=== PATIENT | male | born 1935 | race Caucasian/White ===

== ENCOUNTER 2020-06-24 06:42 | Outpatient (CLI) | payer MEDICARE, SELFPAY ==
[2020-06-24 07:32] LABS: Alanine Aminotransferase 12 U/L (4-50); Albumin Level 3.8 g/dL (3.5-5.1); Alkaline Phosphatase 53 U/L (38-126); Anion Gap 8 mmol/L (8-16); Aspartate Amino Transferase 17 U/L (17-59); Bilirubin,Total 0.3 mg/dL (0.2-1.3); Blood Urea Nitrogen 21 mg/dL (9-20); Calcium 8.5 mg/dL (8.4-10.2); Carbon Dioxide 23 mmol/L (22-30); Chloride 109 mmol/L (98-107); Cholesterol 142 mg/dL (0-200); Estimated Glomerular Filt Rate > 60; Glucose 109 mg/dL (75-110); HDL Direct 41 mg/dL; Potassium 4.4 mmol/L (3.4-5.0); Sodium 140 mmol/L (137-145); Triglycerides 99 mg/dL (<150)
[2020-06-24 07:39] LABS: NT Pro B Type Natriuretic Pept 156 PG/ML (5-100)
[2020-06-24 07:44] LABS: LDL Cholesterol Direct 88 mg/dL
== END 2020-06-24 06:43 | disposition home or self-care (01) ==
PROVIDERS: PCP Emergency Medicine; Visit Provider Emergency Medicine
DX: R06.00 Dyspnea, unspecified (principal); R60.9 Edema, unspecified; E78.2 Mixed hyperlipidemia
CPT/HCPCS: 36415; 80053; 80061; 83880

== ENCOUNTER 2020-06-27 14:40 | Outpatient (CLI) | payer MEDICARE, SELFPAY ==
--- NOTE | 2020-06-27 14:46 | ECHO_ITS ---
Patient Info Name: Jose Dodson Age: 84 years : 1935 Gender: Male Ht: 67 in Wt: 195 lbs BSA: 2.07 m2 HR: 76 bpm BP: 138 / 70 mmHg Technical Quality: Good Exam Date: 06/27/2020 3:20 PM Exam Location: [facility] Patient Status: Outpatient Admit Date: 06/27/2020 Staff Ordering Physician: Bernard Olmos MD Welding Machine Assembler: Farheen Grigsby RDCS Attending Provider: Bernard Olmos MD Referring Physician: Nickolas WOLFE; Exam Type: CA echo doppler color flow Study Info Indications - essential htn Complete two-dimensional, color flow and Doppler transthoracic echocardiogram is performed. Summary 1. Left ventricular chamber dimension is normal. 2. Left ventricular systolic function is normal, estimated at 60-65%. 3. The left ventricular diastolic function is grade I diastolic dysfunction. 4. E/e' 14 is mildly elevated. 5. Global longitudinal strain is normal at -18.4%. 6. Left atrial chamber dimension is mildly enlarged. 7. There is mild aortic valve sclerosis. 8. The mitral valve has mildly thickened leaflets and moderately calcified annulus. 9. There is mild mitral valve regurgitation. 10. There is mild tricuspid valve regurgitation. 11. No pulmonary hypertension, estimated pulmonary arterial systolic pressure is 35 mmHg. Left Ventricle E/e' 14 is mildly elevated. Global longitudinal strain is normal at -18.4%. Left ventricular chamber dimension is normal. Left ventricular systolic function is normal, estimated at 60-65%. The left ventricular diastolic function is grade I diastolic dysfunction. Right Ventricle Right ventricular chamber dimension is normal. Right ventricular systolic function is normal. Left Atria Left atrial chamber dimension is mildly enlarged. Right Atria Right atrial chamber dimension is normal. Aortic Valve The aortic valve is trileaflet. There is mild aortic valve sclerosis. There is no aortic valve stenosis. There is no aortic valve regurgitation. Pulmonic Valve There is no pulmonic regurgitation. Mitral Valve The mitral valve has mildly thickened leaflets and moderately calcified annulus. There is no mitral valve stenosis. There is mild mitral valve regurgitation. Tricuspid Valve There is mild tricuspid valve regurgitation. No pulmonary hypertension, estimated pulmonary arterial systolic pressure is 35 mmHg. Pericardium/Pleural There is no pericardial effusion. Inferior Vena Cava Normal inferior vena cava with >50% collapse upon inspiration consistent with normal right atrial pressure, 5 mmHg. Aorta The aortic root size at the sinus of Valsalva is normal. Left Ventricular Outflow Tract Name Value Normal LVOT 2D LVOT Diameter 2.0 cm LVOT Doppler LVOT Peak Gradient 6 mmHg LVOT Mean Gradient 3 mmHg LVOT VTI 23 cm LVOT VTI/AV VTI Ratio 0.8 LVOT Stroke Volume 71 ml LVOT CO 15.4 l/min LVOT CI 7.4 l/mi
== END 2020-06-27 14:41 | disposition home or self-care (01) ==
PROVIDERS: PCP Emergency Medicine; Visit Provider Emergency Medicine
DX: I10 Essential (primary) hypertension (principal); I34.0 Nonrheumatic mitral (valve) insufficiency; I35.1 Nonrheumatic aortic (valve) insufficiency; I36.1 Nonrheumatic tricuspid (valve) insufficiency
CPT/HCPCS: 93306

== ENCOUNTER 2021-08-08 07:46 | Outpatient (CLI) | payer MEDICARE, SELFPAY ==
[2021-08-08 09:00] LABS: Alanine Aminotransferase 13 U/L (4-50); Albumin Level 4.3 g/dL (3.5-5.1); Alkaline Phosphatase 53 U/L (38-126); Anion Gap 8 mmol/L (8-16); Aspartate Amino Transferase 21 U/L (17-59); Bilirubin,Total 0.6 mg/dL (0.2-1.3); Blood Urea Nitrogen 19 mg/dL (9-20); Calcium 8.9 mg/dL (8.4-10.2); Carbon Dioxide 25 mmol/L (22-30); Chloride 109 mmol/L (98-107); Cholesterol 146 mg/dL (0-200); Estimated Glomerular Filt Rate > 60; Glucose 106 mg/dL (65-110); HDL Direct 45 mg/dL; Potassium 4.3 mmol/L (3.4-5.0); Sodium 142 mmol/L (137-145); Triglycerides 108 mg/dL (<150)
[2021-08-08 09:11] LABS: LDL Cholesterol Direct 85 mg/dL
== END 2021-08-08 07:47 | disposition home or self-care (01) ==
PROVIDERS: PCP Emergency Medicine; Visit Provider Emergency Medicine
DX: E78.2 Mixed hyperlipidemia (principal); I10 Essential (primary) hypertension
CPT/HCPCS: 36415; 80053; 80061

== ENCOUNTER 2022-02-18 06:56 | Outpatient (CLI) | payer MEDICARE, SELFPAY ==
[2022-02-18 08:26] LABS: Alanine Aminotransferase 14 U/L (4-50); Albumin Level 4.1 g/dL (3.5-5.1); Alkaline Phosphatase 65 U/L (38-126); Anion Gap 6 mmol/L (8-16); Aspartate Amino Transferase 24 U/L (17-59); Bilirubin,Total 0.5 mg/dL (0.2-1.3); Blood Urea Nitrogen 22 mg/dL (9-20); Calcium 8.5 mg/dL (8.4-10.2); Carbon Dioxide 24 mmol/L (22-30); Chloride 111 mmol/L (98-107); Cholesterol 157 mg/dL (0-200); Estimated Glomerular Filt Rate > 60; Glucose 104 mg/dL (65-110); HDL Direct 44 mg/dL; Potassium 4.4 mmol/L (3.4-5.0); Sodium 141 mmol/L (137-145); Triglycerides 88 mg/dL (<150)
[2022-02-18 08:38] LABS: LDL Cholesterol Direct 84 mg/dL
== END 2022-02-18 06:57 | disposition home or self-care (01) ==
LOC: ANHLAB 06:58
PROVIDERS: PCP Emergency Medicine; Visit Provider Emergency Medicine
DX: E78.2 Mixed hyperlipidemia (principal); I10 Essential (primary) hypertension
CPT/HCPCS: 36415; 80053; 80061

== ENCOUNTER 2022-08-31 06:38 | Outpatient (CLI) | payer MEDICARE, SELFPAY ==
[2022-08-31 07:50] LABS: Alanine Aminotransferase 16 U/L (6-50); Albumin Level 4.1 g/dL (3.5-5.1); Alkaline Phosphatase 58 U/L (38-126); Anion Gap 8 mmol/L (8-16); Aspartate Amino Transferase 20 U/L (17-59); Bilirubin,Total 0.5 mg/dL (0.2-1.3); Blood Urea Nitrogen 21 mg/dL (9-20); Calcium 8.7 mg/dL (8.4-10.2); Carbon Dioxide 25 mmol/L (22-30); Chloride 106 mmol/L (98-107); Cholesterol 148 mg/dL (0-200); Estimated Glomerular Filt Rate > 60; Glucose 113 mg/dL (65-110); HDL Direct 43 mg/dL; Potassium 4.2 mmol/L (3.4-5.0); Sodium 139 mmol/L (137-145); Triglycerides 107 mg/dL (<150)
[2022-08-31 08:01] LABS: LDL Cholesterol Direct 80 mg/dL
== END 2022-08-31 06:39 | disposition home or self-care (01) ==
LOC: ANHLAB 06:44
PROVIDERS: PCP Emergency Medicine; Visit Provider Emergency Medicine
DX: E78.2 Mixed hyperlipidemia (principal); I10 Essential (primary) hypertension
CPT/HCPCS: 36415; 80053; 80061

== ENCOUNTER 2022-12-28 06:40 | Outpatient (CLI) | payer MEDICARE, SELFPAY ==
[2022-12-28 08:03] LABS: Alanine Aminotransferase 17 U/L (6-50); Alkaline Phosphatase 58 U/L (38-126); Anion Gap 5 mmol/L (8-16); Aspartate Amino Transferase 19 U/L (17-59); Bilirubin,Total 0.5 mg/dL (0.2-1.3); Blood Urea Nitrogen 19 mg/dL (9-20); Calcium 8.3 mg/dL (8.4-10.2); Carbon Dioxide 25 mmol/L (22-30); Chloride 108 mmol/L (98-107); Cholesterol 151 mg/dL (0-200); Estimated Glomerular Filt Rate > 60; Glucose 106 mg/dL (65-110); HDL Direct 42 mg/dL; Sodium 138 mmol/L (137-145); Triglycerides 95 mg/dL (<150)
[2022-12-28 08:14] LABS: LDL Cholesterol Direct 80 mg/dL
[2023-01-01 23:27] LABS: Vitamin D 1,25 (OH)2 Total 37 pg/mL (18-72); Vitamin D2 1,25 (OH)2 <8 pg/mL; Vitamin D3 1,25 (OH)2 37 pg/mL
== END 2022-12-28 06:41 | disposition home or self-care (01) ==
LOC: ANHLAB 06:42
PROVIDERS: PCP Emergency Medicine; Visit Provider Emergency Medicine
DX: E55.9 Vitamin D deficiency, unspecified (principal); E11.9 Type 2 diabetes mellitus without complications
CPT/HCPCS: 36415; 80053; 80061; 82652

== ENCOUNTER 2023-05-20 16:04 | Emergency (ER) | payer MEDICARE, SELFPAY ==
[2023-05-20 16:15] VITALS: BP 142/80; PULSE 71; RESP 18; TEMP 36.3; O2SAT 97
--- NOTE | 2023-05-20 16:41 | ED.EAR ---
HPI - Ear Problem General Chief complaint: Ear Stated complaint: Build up of wax in ear Time Seen by Provider: 05/20/23 16:22 Source: patient, family () and RN notes reviewed History of Present Illness HPI Narrative: Patient presents today complaining of ear wax to the left ear. 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 Patient denies pain or any discomfort. Denies any history of cerumen impactions. Related Data Home Medications Medication Instructions Recorded Confirmed oxybutynin chloride 5 mg tablet 5 mg PO DAILY 10/18/19 05/20/23 Allergies Allergy/AdvReac Type Severity Reaction Status Date / Time No Known Allergies Allergy Verified 01/04/23 09:15 Review of Systems Review of Systems: CONSTITUTIONAL: Denies body aches, fever, chills, or sweats. EYES: Denies visual changes, redness, or discharge. ENT: Denies rhinorrhea, congestion, sore throat, or otalgia.+ left cerumen impaction CARDIOVASCULAR: Denies chest pain, palpitations, or edema. RESPIRATORY: Denies cough or dyspnea. GASTROINTESTINAL: Denies abdominal pain, nausea, vomiting, or diarrhea. GENITOURINARY: Denies dysuria or hematuria. SKIN: Denies rash, itching, or wounds. MUSCULOSKELETAL: Denies back pain, joint pain, or myalgia. NEUROLOGIC: Denies headache, numbness, tingling, or weakness. PSYCH: Denies depression or anxiety. PMF Past Medical History Medical History Dyspnea on minimal exertion Edema HLD (hyperlipidemia) Hypertension Vitamin D deficiency disease Family History Family History Father Hypertension Family history of cardiovascular disease, Onset Age: 77 Mother Family history of cardiovascular disease, Onset Age: 90 Other Diabetes mellitus Social History Social History Smoking status: Never smoker Alcohol intake: current Comments At time of signature, I have reviewed and agree with nursing past medical, surgical, social and family history unless otherwise noted. Please see nursing chart for further information. There is no relevant family history pertinent to the presenting complaint Exam Narrative: GENERAL: Well-appearing, well-nourished, and in no acute distress. HEAD: Normocephalic, atraumatic. EYES: EOMI. No redness or drainage. Conjunctivae normal. ENT: Mucous membranes pink and moist. + left cerumen impaction. Hard of hearing. Wears hearing aids NECK: Normal AROM. CHEST: No respiratory distress. EXTREMITIES: Normal range of motion. No edema. SKIN: Warm, dry, no rash. Capillary refill normal. Normal skin turgor. NEURO: No focal deficits. Alert and oriented x3. Gait steady. PSYCH: Normal affect. No signs of depression or anxiety. Course Course Level of Care: Express Care Visit Vital Signs Vital signs: Vital Signs Temperature 97.4 F L 05/20/23 16:15 Pulse Rate 71 05/20/23 16:15 Respiratory Rate 18 05/20/23 16:15 Blood Pressure 142/80 H 05/20/23 16:15 Pulse Oximetry 97 05/20/23 16:15 Oxygen Delivery Room Air 05/20/23 16:15 Temperature 97.4 F L 05/20/23 16:15 Pulse Rate 71 05/20/23 16:15 Respiratory Rate 18 05/20/23 16:15 Blood Pressure 142/80 H 05/20/23 16:15 Pulse Oximetry 97 05/20/23 16:15 Oxygen Delivery Room Air 05/20/23 16:15 Reviewed. Pt has been instructed to follow up with his PCP regarding his elevated blood pressure today. Procedures Ear Wax Removal Left Ear: Ear Wax Removal Date: 05/20/23 Ear Wax Removal Time: 16:41 Cerumenolytic Used: other (peroxide in water) Results: Re-examined: cerumen removed completely TM Examination: TM(s) intact, normal appearance Patient Tolerated Procedure: well Complications: no problems [employer]
== END 2023-05-20 16:45 | disposition home or self-care (01) ==
PROVIDERS: Emergency Provider Nurse Practitioner; PCP Emergency Medicine
DX: H61.22 Impacted cerumen, left ear (principal); E78.5 Hyperlipidemia, unspecified; I10 Essential (primary) hypertension
CPT/HCPCS: 69210; 99212; G0463

== ENCOUNTER 2023-06-23 07:00 | Outpatient (CLI) | payer MEDICARE, SELFPAY ==
[2023-06-23 07:57] LABS: Alanine Aminotransferase 16 U/L (6-50); Albumin Level 4.1 g/dL (3.5-5.1); Alkaline Phosphatase 58 U/L (38-126); Anion Gap 5 mmol/L (8-16); Aspartate Amino Transferase 23 U/L (17-59); Bilirubin,Total 0.6 mg/dL (0.2-1.3); Blood Urea Nitrogen 17 mg/dL (9-20); Calcium 8.7 mg/dL (8.4-10.2); Carbon Dioxide 25 mmol/L (22-30); Chloride 106 mmol/L (98-107); Cholesterol 157 mg/dL (0-200); Estimated Glomerular Filt Rate > 60; Glucose 107 mg/dL (65-110); HDL Direct 51 mg/dL; Potassium 4.3 mmol/L (3.4-5.0); Sodium 136 mmol/L (137-145); Triglycerides 78 mg/dL (<150)
[2023-06-23 08:08] LABS: LDL Cholesterol Direct 84 mg/dL
[2023-06-26 22:59] LABS: Vitamin D 1,25 (OH)2 Total 33 pg/mL (18-72); Vitamin D2 1,25 (OH)2 <8 pg/mL; Vitamin D3 1,25 (OH)2 33 pg/mL
== END 2023-06-23 07:01 | disposition home or self-care (01) ==
PROVIDERS: PCP Emergency Medicine; Visit Provider Emergency Medicine
DX: E55.9 Vitamin D deficiency, unspecified (principal); E78.2 Mixed hyperlipidemia
CPT/HCPCS: 36415; 80053; 80061; 82652

== ENCOUNTER 2023-09-24 07:36 | Outpatient (CLI) | payer MEDICARE, SELFPAY ==
[2023-09-24 08:39] LABS: Alanine Aminotransferase 16 U/L (6-50); Albumin Level 4.2 g/dL (3.5-5.1); Alkaline Phosphatase 57 U/L (38-126); Anion Gap 7 mmol/L (8-16); Aspartate Amino Transferase 24 U/L (17-59); Bilirubin,Total 0.6 mg/dL (0.2-1.3); Blood Urea Nitrogen 21 mg/dL (9-20); Calcium 8.8 mg/dL (8.4-10.2); Carbon Dioxide 25 mmol/L (22-30); Chloride 110 mmol/L (98-107); Cholesterol 163 mg/dL (0-200); Estimated Glomerular Filt Rate > 60; Glucose 115 mg/dL (65-110); HDL Direct 49 mg/dL; Potassium 4.1 mmol/L (3.4-5.0); Sodium 142 mmol/L (137-145); Triglycerides 95 mg/dL (<150)
[2023-09-24 08:51] LABS: LDL Cholesterol Direct 89 mg/dL
[2023-09-24 09:39] LABS: Vitamin D 25 Hydroxy 33.4 ng/mL
== END 2023-09-24 07:37 | disposition home or self-care (01) ==
LOC: ANHLAB 07:37
PROVIDERS: PCP Emergency Medicine; Visit Provider Emergency Medicine
DX: E55.9 Vitamin D deficiency, unspecified (principal); I10 Essential (primary) hypertension; E78.2 Mixed hyperlipidemia
CPT/HCPCS: 36415; 80053; 80061; 82306

== ENCOUNTER 2024-03-28 06:37 | Outpatient (CLI) | payer MEDICARE, SELFPAY ==
[2024-03-28 08:57] LABS: Alanine Aminotransferase 14 U/L (6-50); Alkaline Phosphatase 62 U/L (38-126); Anion Gap 6 mmol/L (4-12); Aspartate Amino Transferase 21 U/L (17-59); Bilirubin,Total 0.5 mg/dL (0.2-1.3); Blood Urea Nitrogen 18 mg/dL (9-20); Calcium 8.8 mg/dL (8.4-10.2); Carbon Dioxide 24 mmol/L (22-30); Chloride 109 mmol/L (98-107); Cholesterol 143 mg/dL (0-200); Estimated Glomerular Filt Rate > 60; Glucose 107 mg/dL (65-110); HDL Direct 51 mg/dL; Potassium 4.2 mmol/L (3.4-5.0); Sodium 139 mmol/L (137-145); Triglycerides 73 mg/dL (<150)
[2024-03-28 09:08] LABS: LDL Cholesterol Direct 85 mg/dL
[2024-03-28 09:47] LABS: Vitamin D 25 Hydroxy 40.9 ng/mL
== END 2024-03-28 06:38 | disposition home or self-care (01) ==
LOC: ANHLAB 06:39
PROVIDERS: PCP Emergency Medicine; Visit Provider Emergency Medicine
DX: E78.5 Hyperlipidemia, unspecified (principal); I10 Essential (primary) hypertension; E55.9 Vitamin D deficiency, unspecified
CPT/HCPCS: 36415; 80053; 80061; 82306

== ENCOUNTER 2024-08-17 08:59 | Outpatient (CLI) | payer MEDICARE, SELFPAY ==
--- NOTE | ~2024-08-17 | XR_ITS ---
EXAMINATION: XR chest 2V DATE: 08/17/2024 09:22 INDICATION: Chest pain TECHNIQUE: PA and lateral views of the chest were obtained. COMPARISON: Chest radiograph dated 11/14/2019 FINDINGS: The lungs remain small with eventration along the anterior right hemidiaphragm. Persistent opacities at the anterior lung bases. No pulmonary edema, pleural effusion or pneumothorax. Heart size is withi n normal limits for AP technique. Mild thoracic spondylosis with bridging osteophytes at multiple lev els consistent with diffuse idiopathic skeletal hyperostosis (DISH). IMPRESSION: 1. Small amounts with persistent mild opacities at the anterior lung bases likely atelectasis/scarrin g although differential includes pneumonia. Reviewed, dictated and finalized at location A. IMPRESSION: 1. Small amounts with persistent mild opacities at the anterior lung bases like ly atelectasis/scarring although differential includes pneumonia.
--- NOTE | 2024-08-17 09:20 | ECG_ITS ---
Test Date: 2024-08-17 09:28:35 Measurements Intervals [place] Rate: 51 P: 31 SD: 159 QRS: 21 QRSD: 92 T: 75 QT: 408 QTc: 376 Interpretive Statements SINUS BRADYCARDIA NONSPECIFIC T-WAVE ABNORMALITY No previous ECG available for comparison Electronically Signed On 08-17-2024 12:10:29 CDT by Agustin Vu M.D.
== END 2024-08-17 09:00 | disposition home or self-care (01) ==
LOC: ANHIMG 09:03
PROVIDERS: PCP Emergency Medicine; Visit Provider Emergency Medicine
DX: R91.8 Other nonspecific abnormal finding of lung field (principal)
CPT/HCPCS: 71046; 93005

== ENCOUNTER 2024-11-16 08:30 | Outpatient (CLI) | payer MEDICARE, SELFPAY ==
[2024-11-16 09:11] LABS: Alanine Aminotransferase 12 U/L (6-50); Albumin Level 3.9 g/dL (3.5-5.1); Alkaline Phosphatase 58 U/L (38-126); Anion Gap 2 mmol/L (4-12); Aspartate Amino Transferase 19 U/L (17-59); Bilirubin,Total 0.6 mg/dL (0.2-1.3); Blood Urea Nitrogen 20 mg/dL (9-20); Calcium 8.8 mg/dL (8.4-10.2); Carbon Dioxide 25 mmol/L (22-30); Chloride 112 mmol/L (98-107); Cholesterol 148 mg/dL (0-200); Estimated Glomerular Filt Rate > 60; Glucose 113 mg/dL (65-110); HDL Direct 47 mg/dL; Potassium 4.3 mmol/L (3.4-5.0); Sodium 139 mmol/L (137-145); Triglycerides 89 mg/dL (<150)
[2024-11-16 09:22] LABS: LDL Cholesterol Direct 67 mg/dL
[2024-11-16 10:51] LABS: Vitamin D 25 Hydroxy 34.3 ng/mL
== END 2024-11-16 08:31 | disposition home or self-care (01) ==
LOC: ANHLAB 08:31
PROVIDERS: PCP Emergency Medicine; Visit Provider Emergency Medicine
DX: E78.2 Mixed hyperlipidemia (principal); E55.9 Vitamin D deficiency, unspecified
CPT/HCPCS: 36415; 80053; 80061; 82306

== ENCOUNTER 2024-12-05 10:20 | Outpatient (CLI) | payer MEDICARE, SELFPAY ==
[2024-12-05 13:17] LABS: Prostate Specific Antigen 2.7 ng/mL (< OR = 4.0)
--- OUTSIDE RECORDS SUMMARY | 2024-12-07 17:20 | XMS_ITS | Patient Health Summary ---
Author Organization [facility] Address [address] [place] [address] Care Team Providers Care Casino Host Name Role Phone Aristides Bronw MD Primary Care Provider [phone] Note from [facility],non-owned Affiliates and Associated Physician Practices is amultiple site organization consisting of ambulatory clinics and hospital sitesin [place], [place], [place] and [place]. This disclosure is being madepursuant to the Care Everywhere program and may not contain all information available regarding this patient. Last updated 18.[facility] Allergies No known active allergies Medications * Be aware that medications may not be up to date on this document. Alwaysverify current medications with the patient. * amLODIPine (NORVASC) 10 MG tablet(Started 11/11/2018) 10 mg * atorvastatin (LIPITOR) 10 MG tablet(Started 11/11/2018) 10 mg * losartan-hydroCHLOROthiazide (HYZAAR) 100-25 MG tablet(Started 11/12/2018) * oxybutynin CR 24hr (DITROPAN-XL) 5 MG tablet(Started 12/15/2018) 5 mg * Calcium Citrate-Vitamin D (CALCIUM + D PO) * SAW JEFF MARQUES PO Active Problems No known active problems Social History Tobacco Use Types Packs/Day Years Used Date Smoking Tobacco: Former Smokeless Tobacco: Never Alcohol Use Standard Drinks/Week Comments Yes 0 (1 standard drink = 0.6 oz pur e alcohol) Sex and Gender Information Value Date Recorded Sex Assigned at Not on file Gender Identity Not on file Sexual Orientation Not on file Last Filed Vital Signs Vital Sign Reading Time Taken Comments Blood Pressure 124/79 02/01/2019 3:10 PM CDT Pulse 94 02/01/2019 3:10 PM CDT Temperature - - Respiratory Rate - - Oxygen Saturation 95% 02/01/2019 3:10 PM CDT Inhaled Oxygen Concentration - - Weight 86.2 kg (190 lb) 02/01/2019 1:36 PM CDT Height 170.2 cm (5' 7 ) 02/01/2019 1:36 PM CDT Body Mass Index 29.76 02/01/2019 1:36 PM CDT Procedures * DERMATOPATHOLOGY(Performed 08/24/2023) * DERMATOPATHOLOGY(Performed 07/13/2023) * DERMATOPATHOLOGY(Performed 08/21/2020) * DERMATOPATHOLOGY(Performed 07/16/2020) * AZ EXC SKIN MALIG 3.1-4CM TRUNK,ARM,LEG(Performed 02/01/2019) 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) * AZ REPR CMPL WND TRUNK 2.6-7.5CM(Performed 02/01/2019) 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 Case Report Dermatopathology Report ? Case: [id number] ? Authorizing Provider: ??Stephen Osborn MD ?Collected: ? 08/24/2023 12:00 AM ? Ordering Location: ? [facility] ? Received: ?08/25/2023 04:17 PM ? Pathologist: ? Ling Edwards MD ? Specimen: ?Skin, right neck behind ear ? 3 4:16 PM [facility] Final Diagnosis Specimen A. SKIN, right neck behind ear: HYPERPLASTIC (HYPERTROPHIC) ACTINIC KERATOSIS; EXTENDING TO THE BASE OF THE SPECIMEN (L57.0) INTRADERMAL MELANOCYTIC NEVUS (D22.4) DERMAL SCAR (L90.5) (see microscopic description and comment) 3 4:16 PM [facility] Clinical History Bx Proven, Kimbrough's Disease 3 4:16 PM [facility] Gross Description Specimen A: Received is one formalin filled container labeled with the patient's name and designated right neck behind ear. The specimen consists of a curettage and desiccation biopsy measuring 60u35l0 mm. Jar 0. 3 4:16 PM [facility] Microscopic Description Specimen A. SKIN, right neck behind ear: There is hyperkeratosis alternating with parakeratosis. There is epidermal hyperplasia with disorderly maturation of keratinocytes with nuclear pleomorphism confined to the lower half of the epidermis. This process extends to the base of the specimen. There are nests of cytologically bland melanocytes within the dermis that mature with depth. There are fibroblasts and collagen bundles oriented parallel to the skin surface with elongated blood vessels, some of which are oriented perpendicular to the skin surface. COMMENT: A squamous cell carcinoma cannot be ruled out 3 4:16 PM CDT DERMATOPATHOLOGY LABORATORY Disclaimer An external and internal positive and negative controls are appropriate for the histochemical, immunohistochemical and immunofluorescence stain(s) in this case (if any), except where stated explicitly. The performance characteristics of the stain(s) cited in this report were developed and its performance characteristic determined by the Dermatopathology Laboratory at [facility], directed by Dr. Cassandra Acuna. These tests need not be, and therefore are not, approved by the [place] Food and Drug Administration. The tests are used for clinical purposes. Billing Codes Specimen Charges Stain Charges 14631 1 3 4:16 PM CDT DERMATOPATHOLOGY LABORATORY Embedded Images 3 4:16 PM CDT DERMATOPATHOLOGY LABORATORY Pathology/Cytolog y TISSUE SPECIMEN FROM SKIN / Unknown 08/24/2023 08/25/2023 4:17 PM CDT Stephen Osborn MD LAB - PATHOLOGY/CYTO LOGY ORDERABLES DERMATOPATHOLOGY LABORATORY [facility] - Department of Dermatology [address], [address] [phone] * AZ REP,SKIN,TRUNK,CMPLX,+5CM/<, AZ REPR CMPL WND TRUNK 2.6-7.5CM, AZ EXC SKIN MALIG 3.1-4CM TRUNK,ARM,LEG (02/01/2019 4:26 PM CDT) Narrative Sylvia Campbell MD - 02/01/2019 4:26 PM CDT Lucero Canada MD ? 02/01/2019 ??3:48 PM Elliptical Excision with Complex Closure Date of Service: 02/01/2019 Surgery: Elliptical excision with complex repair Repair size: ?? 9.1cm Tumor Type: melanoma Location: ??right upper back Derm-Path Lesion Size: ??1.5 x 1.3cm Excised Diameter: 3.5 x 3.3cm Level of Defect: fat Suture: running subcuticular PDS 3-0;PDS 4-0 Primary Surgeon: ??Adrian Chief Knowledge Officer Surgeon: ?? Dread INDICATIONS: The patient was scheduled for excision of a melanoma on the right upper back. ??The risks of bleeding, infection, discomfort, incomplete removal, and scar formation were explained to the patient. ??All questions were answered. ??After informed consent, confirmation of site and identity, and appropriate instructions, the patient underwent the procedure as follows: PROCEDURE: The lesion was outlined with 1.0 cm margins. ??The lesion and the necessary margin (excised diameter) measured ??3.5 x 3.3cm. ??An ellipse was designed around the lesion to conform to relaxed skin tension lines in an effort to minimize scarring and deformity. ?? The patient was then placed in a ?? prone position. ??The lesion and surrounding skin were prepped with Hibiclens, draped and anesthetized with Lidocaine 1% with epinephrine 1:100,000 buffered with sodium bicarbonate 8.4% in a 1:10 ratio. ??Using a #10 blade the skin was excised along pre-marked lines. ??The resulting defect extended to fat. ??Wound margins were extensively undermined to limit functional deformity/impairment of adjacent structures. ??Bleeding vessels were controlled with ??monopolar electrodessication. ?? space was closed and wound edges opposed with buried vertical mattress sutures. ??Epidermal approximation was meticulously refined with running subcuticular sutures, resulting in a linear closure with little to no wound tension. ??Blood loss was estimated to be less than 5 cc. ??The area was coated with petrolatum and covered with a non-adherent pressure dressing followed by gauze and tape. ??Postoperative instructions were reviewed per protocol. ??The patient left alert and fully oriented. Post-Operative Size: ?? 9.1cm Sutures Used: ??PDS 3-0;PDS 4-0 Estimated Blood Loss: ??<5 ml Complications: ?? none The Attending surgeon was present for the entire Mohs procedure and kat portions of the repair and always immediately available. Lucero Canada MD [facility] Dermatology Resident - PGY-4 Sylvia Campbell MD PROCEDURE/MINOR SURG ICAL ORDERABLES Care Teams Casino Host Relationship Specialty Start Date End Date Aristides Brown MD [address] [place] [phone] [facility] - General 10/27/11
--- OUTSIDE RECORDS SUMMARY | 2024-12-07 17:20 | XMS_ITS | Referral Summary ---
Author Organization [facility] Address [address] [place] [address] Care Team Providers Care Ferryboat Operator Name Role Phone Aristides Brown MD Primary Care Provider [phone] Source Comments [facility],non-owned Affiliates and Associated Physician Practices is amultiple site organization consisting of ambulatory clinics and hospital sitesin [place], [place], [place] and [place]. This disclosure is being madepursuant to the Care Everywhere program and may not contain all information available regarding this patient. Last updated 18.[facility] Allergies No known active allergies Medications * Be aware that medications may not be up to date on this document. Alwaysverify current medications with the patient. Medication Sig Dispensed Refills Start Date End Date Status amLODIPine (NORVASC) 10 MG tablet 10 mg 11/11/2018 Active atorvastatin (LIPITOR) 10 MG tablet 10 mg 11/11/2018 Active losartan-hydroCHLOROthiazide (HYZAAR) 100-25 MG tablet 11/12/2018 Active oxybutynin CR 24hr (DITROPAN-XL) 5 MG tablet 5 mg 12/15/2018 Active Calcium Citrate-Vitamin D (CALCIUM + D PO) Active SAW PALMETTO, SERENOA REPENS, PO Active Active Problems No known active problems Social [...] Mass Index 29.76 02/01/2019 1:36 PM CDT Plan of Treatment Not on file Care Teams Ferryboat Operator Relationship Specialty Start Date End Date Aristides Brown MD [address] [place] [phone] PCP - General 10/27/11
--- OUTSIDE RECORDS SUMMARY | 2024-12-07 17:20 | XMS_ITS | Continuity of Care Document ---
Author Organization [facility] Address [address] [place] [address] Phone Care Team Providers Care Clinical Trials Manager Name Role Phone Davian Gonzalez Unavailable Unavailable Procedures Procedure Date Visual Field Examination(s) Visual Field Examination(s) Office/outpatient Visit, Est Corneal Pachymetry Fundus Photography W/ Report Optic Nerve Head Eval No Script Visual Field Examination-Professional Ap Visual Field Examination-Technical Progressive Lens, Hi Index Vision Svcs Frames Purchases Anti-reflective Coating Office/outpatient Visit, Est Optic Nerve Head Eval Refraction No Script Eye Exam & Treatment Refraction Office Consultation Ophthalmoscopy Fluorescein Angiography Fundus Photography W/ Report Office/outpatient Visit, Est Advance Directives Directive Yes / No Effective Date File Name No Information Encounters Encounter Description Practice Location Reason(s) For Visit Diagnoses Date Provider Providers Copied on Encounter [facility], [address], [place], [place], [id number], [place] tel:[phone] [facility] No Information 0 Lisa Davian. [address], [place], [address], [place]. tel:[phone] Referring Provider: Davian Gonzalez, [facility] [address], [place], [address]. tel:[phone] [facility], [id number] [place] [address] [address], [place], [place], [address], [place] tel:[phone] [place] [address] No Information Feb- 3-201 0 Anette Murry. [facility] [address] , [address], [place], [address], [place]. tel:[phone] Referring Provider: Jeanmarie Gil, [facility] [address], [place], [facility]. tel:[phone] Office/outpat ient Visit, [facility], [address] [place] [address] [address], [place], [place], [address], [place] tel:[phone] [place] [address] No Information 1200 9 Anette Murry. [address] [place], [place] [address] , [address], [place], [address], [place]. tel:[phone] Referring Provider: Jeanmarie Gil, [facility] [address], [place], [facility]. tel:[phone] [facility], [address] [place] [address] [address], [place], [place], [address], [place] tel:[phone] [place] [address] No Information Feb-2 7-200 9 Anette Murry. [facility] [address] [facility] , [address], [place], [address], [place]. tel:[phone] Referring Provider: Jeanmarie Gil, [facility] [address], [place], [facility]. tel:[phone] [facility], [address] [place] [address] [address], [place], [place], [address], [place] tel:[phone] [facility] No Information 4-200 9 Anette Murry. [address] [facility] , [address], [place], [facility], [place]. tel:[phone] Referring Provider: Jeanmarie Gil, [facility] [address], [place], [facility]. tel:[phone] [facility], [address] [place] [address] [address], [place], [place], [address], [place] tel:[phone] [facility] No Information 0-200 9 [employer]. [address] [facility], [address], [place], [place], [address], [place]. tel:[phone] Referring Provider: Jeanmarie Gli, [facility] [address], [place], [facility]. tel:[phone] ing Provider: Rachana Gonzales, [address] [place] [address], [facility]. tel:[phone] Office/outpat ient Visit, Est [facility], [address], [place], [place], [address], [place] tel:[phone] [facility] No Information 0 9-200 9 Anette Murry. [facility] , [address], [place], [facility], [place]. tel:[phone] [facility], [address] [place] [address] [address], [place], [place], [address], [place] tel:[phone] [facility] No Information 1-200 8 Anette Murry. [address] [facility] , [address], [place], [facility], [place]. tel:[phone] Office Consultation [facility], [address], [place], [place], [address], [place] tel:[phone] [facility] No Information 7 Kumari Toby. [address] [facility] [address] [facility], [place], [address], [place]. tel:[phone] Referring Provider: Jeanmarie Gil [address], [place], [address]. tel:[phone] Office/outpat ient Visit, [facility], [address], [place], [place], [address], [place] [phone] [facility] No Information 0200 7 Anette Murry. [address] , [address], [place], [address], [place]. tel:[phone] Family History Family Member Type Diagnosis Age At Onset No Information Payers Payer name Insurance type Covered democrat ID Authoriza tion(s) Medicare [facility] [id number] [facility] [id number] Social History Type Description Quantity Date Captured Comments Sex Male Smoking Status No Information Chief Complaint And Reason For Visit No Information Reason For Referral Reason For Referral No Information History Of Present Illness Encounter Date Complaint History Of Prese nt Illness No Information Functional Status Date Functional Assessmen t No Information Instructions Date Instruction Additional Infor mation No Information Assessments Type Assessment Date No Information Patient Care Teams Name Effective Dates (start - stop) Status Members No Information
--- OUTSIDE RECORDS SUMMARY | 2024-12-07 17:20 | XMS_ITS | Encounter Summary ---
Author Organization [facility] Address [address] [place] [address] Care Team Providers Care Php Website Developer Name Role Phone Aristides Brown MD Primary Care Provider [phone] Encounter Details Date Type Department Care Team (Late st Contact Info) Description 08/25/2023 Lab Requisition [facility] - DermPath Lab [address], [place] [id number] Stephen Osborn MD [address] [place], [place] [id number] Social History Tobacco Use Types Packs/Day Years Used Date Smoking Tobacco: Former Smokeless Tobacco: Never Alcohol Use Standard Drinks/Week Comments Yes 0 (1 standard drink = 0.6 oz pur e alcohol) Sex and Gender Information Value Date Recorded Sex Assigned at Not on file Gender Identity Not on file Sexual Orientation Not on file documented as of this encounter Plan of Treatment Not on file documented as of this encounter Procedures Procedure Name Priority Date/Time Associated Diagnosis Comments DERMATOPATHOLOGY Routine 08/24/2023 12:0 0 AM CDT documented in this encounter Results * DERMATOPATHOLOGY (08/24/2023 12:00 AM CDT) Case Report Dermatopathology Report ? Case: [id number] ? Authorizing Provider: ??Stephen Osborn MD ?Collected: ? 08/24/2023 12:00 AM ? Ordering Location: ? [facility] DermPath Lab ? Received: ?08/25/2023 04:17 PM ? Pathologist: ? Ling Edwards MD ? Specimen: ?Skin, right neck behind ear ? 3 4:16 PM T DERMATOPATHOLOGY LABORATORY Final Diagnosis Specimen A. SKIN, right neck behind ear: HYPERPLASTIC (HYPERTROPHIC) ACTINIC KERATOSIS; EXTENDING TO THE BASE OF THE SPECIMEN (L57.0) INTRADERMAL MELANOCYTIC NEVUS (D22.4) DERMAL SCAR (L90.5) (see microscopic description and comment) 3 4:16 PM [facility] DERMATOPATHOLOGY LABORATORY Clinical History Bx Proven, Kimbrough's Disease 3 4:16 PM [facility] DERMATOPATHOLOGY LABORATORY Gross Description Specimen A: Received is one formalin filled container labeled with the patient's name and designated right neck behind ear. The specimen consists of a curettage and desiccation biopsy measuring [id number] mm. Jar 0. 3 4:16 PM [facility] DERMATOPATHOLOGY LABORATORY Microscopic Description Specimen A. SKIN, [...] characteristic determined by the Dermatopathology Laboratory at [facility], directed by Dr. Cassandra Acuna. These tests need not be, and therefore are not, approved by the [place] Food and Drug Administration. The tests are used for clinical purposes. Billing Codes Specimen Charges Stain Charges 94949 1 3 4:16 PM CDT DERMATOPATHOLOGY LABORATORY Embedded Images 3 4:16 PM CDT DERMATOPATHOLOGY LABORATORY Pathology/Cytolog y TISSUE SPECIMEN FROM SKIN / Unknown 08/24/2023 08/25/2023 4:17 PM CDT Stephen Osborn MD LAB - PATHOLOGY/CYTO LOGY ORDERABLES Performing Organization Address City/State/[facility] Co de Phone Number DERMATOPATHOLOGY LABORATORY [facility] - Department of Dermatology [address], [address] [phone] documented in this encounter Visit Diagnoses Not on filedocumented in this encounter Care Teams Php Website Developer Relationship Specialty Start Date End Date Aristides Brown MD [address] [place] [address] PCP - General 10/27/11 documented as of this encounter
--- OUTSIDE RECORDS SUMMARY | 2024-12-07 17:20 | XMS_ITS | Clinical Summary ---
Author Organization [facility] [employer] [facility] Address [address] [place] [address] Care Team Providers Care Roguer Name Role Phone Aristides Brown MD Primary Care Provider [phone] Source Comments [facility] [employer],non-owned Affiliates and Associated Physician Practices is amultiple site organization consisting of ambulatory clinics and hospital sitesin [place], [place], [place] and [place]. This disclosure is being madepursuant to the Care Everywhere program and may not contain all information available regarding this patient. Last updated 18.[facility] Allergies No known active allergies Medications * [...] Active Active Problems No known active problems Family History Medical History Relation Name Comments Asthma Neg Hx CVA Neg Hx Cancer - Breast Neg Hx Cancer - Other Neg Hx Cancer - Skin, Melanoma Neg Hx Cancer - Skin, Non Melanoma Neg Hx Eczema Neg Hx Hemophilia Neg Hx Social History Tobacco Use Types Packs/Day Years [...] 02/01/2019 1:36 PM CDT Plan of Treatment Health Maintenance Due Date Last Done Comments MEDICARE AWV ? 12 MONTHS 1937 DTAP/TDAP/TD VACCINES (1 - Tdap) 1956 PNEUMOCOCCAL VACCINE 50+ (1 of 1 - PCV) 1987 ZOSTER VACCINE (1 of 2) 1987 Respiratory Syncytial Virus (RSV) Vaccine Pt: or over 60 yrs (1 - 1-dose 75+ series) 2012 COVID-19 VACCINE ( - 2023-2 5 season) 2024 INFLUENZA VACCINE (#1) 2024 DEPRESSION SCREENING 11/15/2024 HEPATITIS B VACCINE Aged Out No longe r eligible based on patient's age to complete this topic HIB VACCINE Aged Out No longer eligi ble based on patient's age to complete this topic HPV VACCINE Aged Out No longer eligi ble based on patient's age to complete this topic MENINGOCOCCAL (Group B) VACCINE Aged Out No longer eligible based on patient's age to complete this topic MENINGOCOCCAL VACCINE Aged Out No humza charles eligible based on patient's age to complete this topic Care Teams Roguer Relationship Specialty Start Date End Date Aristides Brown MD [address] [place] [address] PCP - General 10/27/11
--- OUTSIDE RECORDS SUMMARY | 2024-12-07 17:20 | XMS_ITS | Encounter Summary ---
Author Organization [facility] Address [address] [place] [address] Care Team Providers Care Coupling Machine Operator Name Role Phone Aristides Brown MD Primary Care Provider [phone] Encounter Details Date Type Department Care Team (Late st Contact Info) Description 07/17/2020 Lab Requisition [facility] Care DermPath Lab [address] [place] [address] Stephen Osborn MD [address] [place] [address] Social History Tobacco Use Types Packs/Day Years [...] Priority Date/Time Associated Diagnosis Comments DERMATOPATHOLOGY Routine 07/16/2020 12:0 0 AM CDT documented in this encounter Results * DERMATOPATHOLOGY (07/16/2020 12:00 AM CDT) Case Report Dermatopathology Report ? Case: [id number] ? Authorizing Provider: ??Stephen Osborn MD ?Collected: ? 07/16/2020 12:00 AM ? Ordering Location: ? [facility] DermPath Lab ?Received: ?07/17/2020 02:36 PM ? Pathologist: ? Ling Edwards MD ? Specimen: ?Skin, right medial lower breast @ epigastrium ? 0 12:42 PM CDT DERMATOPATHOLOGY LABORATORY Final Diagnosis Specimen A. SKIN, right medial lower breast @ epigastrium: BASAL CELL CARCINOMA, SUPERFICIAL MULTIFOCAL (C44.519) 0 12:42 PM CDT DERMATOPATHOLOGY LABORATORY Clinical History R/O BCC, HAK, Kimbrough's, SCC. 0 12:42 PM CDT DERMATOPATHOLOGY LABORATORY Gross Description Specimen A: Received is one formalin filled container labeled with the patient's name and designated right medial lower breast @ epigastrium. The specimen consists of a shave biopsy measuring [id number]. Jar 0. 0 12:42 PM CDT DERMATOPATHOLOGY LABORATORY Microscopic Description Specimen A. SKIN, right medial lower breast @ epigastrium: Attached to the undersurface of the epidermis, there are small aggregates of basaloid cells with a high nuclear to cytoplasmic ratio and peripheral palisading. 0 12:42 PM CDT DERMATOPATHOLOGY LABORATORY Disclaimer An external and internal positive and negative controls are appropriate for the histochemical, immunohistochemical and immunofluorescence stain(s) in this case (if any), except where stated explicitly. The performance characteristics of the stain(s) cited in this report were developed and its performance characteristic determined by the Dermatopathology Laboratory at [facility], directed by Dr. Cassandra Acuna. These tests need not be, and therefore are not, approved by the [place] Food and Drug Administration. The tests are used for clinical purposes. Billing Codes Specimen Charges Stain Charges 71779 1 0 12:42 PM CDT DERMATOPATHOLOGY LABORATORY Embedded Images 0 12:42 PM CDT DERMATOPATHOLOGY LABORATORY Pathology/Cytolog y TISSUE SPECIMEN FROM SKIN / Unknown 07/16/2020 07/17/2020 2:36 PM CDT Stephen Osborn MD LAB - PATHOLOGY/CYTO LOGY ORDERABLES DERMATOPATHOLOGY LABORATORY [facility] - Department of Dermatology [facility] [address] [place] [address], [address] [phone] documented in this encounter Visit Diagnoses Not on filedocumented in this encounter Care Teams Coupling Machine Operator Relationship Specialty Start Date End Date Aristides Brown MD [address] [place] [address] PCP - General 10/27/11 documented as of this encounter
--- OUTSIDE RECORDS SUMMARY | 2024-12-07 17:20 | XMS_ITS | Encounter Summary ---
Author Organization [facility] Address [address] [place] [address] Care Team Providers Care Patternmaker Pressure Cast Name Role Phone Aristides Brown MD Primary Care Provider Encounter Details Date Type Department Care Team (Late st Contact Info) Description 01/19/2019 Lab Requisition [facility] Care DermPath Lab [address] [place] [phone] Stephen Osborn MD [address] [place] [address] Social History Tobacco Use Types Packs/Day Years Used Date Smoking Tobacco: Never Assessed Sex and Gender Information Value Date Recorded Sex Assigned at Not on file Gender Identity Not on file Sexual Orientation Not on file documented as of this encounter Plan of Treatment Not on file documented as of this encounter Procedures Procedure Name Priority Date/Time Associated Diagnosis Comments DERMATOPATHOLOGY Routine 01/18/2019 12:0 0 AM WORKERS COMPENSATION CLAIMS ADJUSTER documented in this encounter Results * DERMATOPATHOLOGY (01/18/2019 12:00 AM WORKERS COMPENSATION CLAIMS ADJUSTER) Case Report Dermatopathology Report ? Case: [id number] ? Authorizing Provider: ??Stephen Osborn MD ?Collected: ? 01/18/2019 12:00 AM ? Pathologist: ? Craidad Shipley MD ? Received: ?01/19/2019 01:01 PM ? Specimens: ?? A) - Skin, supra pubic skin ? B) - Skin, right upper back ? 9 1:05 PM [facility] DERMATOPATHOLOGY LABORATORY Final Diagnosis Specimen A. SKIN, supra pubic skin: DERMAL SCAR (L90.5) Specimen B. SKIN, right upper back: MALIGNANT MELANOMA, SUPERFICIAL SPREADING TYPE; NOT PRESENT AT SAMPLED MARGIN (C43.59) BRESLOW THICKNESS 0.7mm, WILLIS LEVEL III (see microscopic description, comment and synoptic report) 9 1:05 PM [facility] DERMATOPATHOLOGY LABORATORY Clinical History A: R/O SCC, BCC, DF. B: R/O SCC, BCC. 1:05 PM [facility] DERMATOPATHOLOGY LABORATORY Gross Description Specimen A: Received is one formalin filled container labeled with the patient's name and designated supra pubic skin. The specimen consists of a shave biopsy measuring [id number]. Jar 0. Specimen B: Received is one formalin filled container labeled with the patient's name and designated right upper back. The specimen consists of a shave biopsy measuring [id number]. Jar 0. 1:05 PM [facility] DERMATOPATHOLOGY LABORATORY Microscopic Description Specimen A. SKIN, supra pubic skin: There are fibroblasts and collagen bundles oriented parallel to the skin surface with elongated blood vessels, some of which are oriented perpendicular to the skin surface. Specimen B. SKIN, right upper back: There is a proliferation melanocytes distributed in an irregular pattern singly and in nests at all levels of the epidermis. In the dermis there are irregular nests and single scattered melanocytes. There is a brisk underlying lymphocytic inflammatory infiltrate. This lesion is not present at the sampled margin of the specimen. COMMENT: This case was also reviewed by Dr. Cassandra Acuna who agrees with the diagnosis. See synoptic report. 9 1:05 PM [facility] DERMATOPATHOLOGY LABORATORY Disclaimer An external and internal positive and negative controls are appropriate for the histochemical, immunohistochemical and immunofluorescence stain(s) in this case (if any), except where stated explicitly. The performance characteristics of the stain(s) cited in this report were developed and its performance characteristic determined by the Dermatopathology Laboratory at [facility], directed by Dr. Cassandra Acuna. These tests need not be, and therefore are not, approved by the [place] Food and Drug Administration. The tests are used for clinical purposes. Billing Codes Specimen Charges Stain Charges 04348 65253 1 1 9 1:05 PM [facility] DERMATOPATHOLOGY LABORATORY Embedded Images 1:05 PM [facility] DERMATOPATHOLOGY LABORATORY Synoptic Report MELANOMA OF THE SKIN: Biopsy ??(Melanoma Bx - B) SPECIMEN ?? Procedure: ?Biopsy, shave ?? Specimen Laterality: ?Right TUMOR ?? Tumor Site: ?Skin of trunk: right upper back : ? Histologic Type: ?Superficial spreading melanoma ?? Maximum Tumor (Breslow) Thickness in Millimeters: ?0.7 Millimeters (mm) ?? Tumor Extent: ? Macroscopic Satellite Nodule(s): ?Not identified ? Ulceration: ?Not identified ? Anatomic (Willis) Level: ?III (melanoma fills and expands papillary dermis) ?? Accessory Findings: ? Mitotic Rate: ?None identified ? Microsatellite(s): ?Not identified ? Lymphovascular Invasion: ?Not identified ? Neurotropism: ?Not identified ? Tumor-Infiltrating Lymphocytes: ?Present, brisk ? Tumor Regression: ?Present ?? MARGINS: ? Peripheral Margins: ?Uninvolved by invasive melanoma ? Status of Melanoma In Situ Involvement at Peripheral Margins: ?Uninvolved by melanoma in situ ? Deep Margin: ?Uninvolved by invasive melanoma ?? PATHOLOGIC STAGE CLASSIFICATION (pTNM, AJCC 8th Edition): ? Primary Tumor (pT): ?pT1a Comment(s) Comment(s): ?Dr. Cassandra Acuna has also reviewed this case and agrees with the diagnosis. 9 1:05 PM WORKERS COMPENSATION CLAIMS ADJUSTER DERMATOPATHOLOGY LABORATORY Pathology/Cytology TISSUE SPECIMEN FROM SKIN / Unknown 01/18/2019 01/19/2019 1:01 PM WORKERS COMPENSATION CLAIMS ADJUSTER Miscellaneous samples (specimen) TISSUE SPECIMEN FROM SKIN / Unknown 01/18/2019 01/19/2019 1:01 PM WORKERS COMPENSATION CLAIMS ADJUSTER Stephen Osborn MD LAB - PATHOLOGY/CYTO LOGY ORDERABLES DERMATOPATHOLOGY LABORATORY [facility] - Department of Dermatology [address] [facility] [address] [phone] documented in this encounter Visit Diagnoses Not on filedocumented in this encounter Care Teams Patternmaker Pressure Cast Relationship Specialty Start Date End Date Aristides Brown MD [address] [place] [address] PCP - General 10/27/11 documented as of this encounter
--- OUTSIDE RECORDS SUMMARY | 2024-12-07 17:20 | XMS_ITS | Encounter Summary ---
Author Organization [facility] Address [address] [place] [address] Care Team Providers Care Load Dropper Name Role Phone Aristides Brown MD Primary Care Provider [phone] Encounter Details Date Type Department Care Team (Late st Contact Info) Description 07/14/2023 Lab Requisition [facility] - DermPath Lab [address] [place] [id number] Stephen Osborn MD [address] [place], [place] [id number] Social History Tobacco Use Types Packs/Day Years [...] Priority Date/Time Associated Diagnosis Comments DERMATOPATHOLOGY Routine 07/13/2023 12:0 0 AM CDT documented in this encounter Results * DERMATOPATHOLOGY (07/13/2023 12:00 AM CDT) Case Report Dermatopathology Report ? Case: [id number] ? Authorizing Provider: ??Stephen Osborn MD ?Collected: ? 07/13/2023 12:00 AM ? Ordering Location: ? [facility] DermPath Lab ? Received: ?07/15/2023 07:17 AM ? Pathologist: ? Ling Edwards MD ? Specimens: ?? A) - Skin, right lat forehead ? B) - Skin, right neck behind ear ? 3 12:47 PM CDT DERMATOPATHOLOGY LABORATORY Final Diagnosis Specimen A. SKIN, right lat forehead: ACTINIC KERATOSIS, INFLAMED (L57.0) (see microscopic description) Specimen B. 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 The specimen consists of a shave biopsy measuring 10x8x1 mm. Jar 0. Specimen B: Received is one formalin filled container labeled with the patient's name and designated right neck behind ear. The specimen consists of a shave biopsy measuring 01d14h1 mm. Jar 0. 3 12:47 PM CDT DERMATOPATHOLOGY LABORATORY Microscopic Description Specimen A. SKIN, right lat forehead: There is focal parakeratosis. The lower half of the epidermis shows disorderly maturation of keratinocytes with nuclear pleomorphism. Adnexal extension of the lesion is seen. The lesion is inflamed. Specimen B. SKIN, right neck behind ear: The epidermis shows parakeratosis, full thickness disorderly maturation of keratinocytes, mitoses at different levels, and dyskeratotic cells. 3 12:47 PM CDT DERMATOPATHOLOGY LABORATORY Disclaimer An external and internal positive and negative controls are appropriate for the histochemical, immunohistochemical and immunofluorescence stain(s) in this case (if any), except where stated explicitly. The performance characteristics of the stain(s) cited in this report were developed and its performance characteristic determined by the Dermatopathology Laboratory at [facility], directed by Dr. Cassandra Acuna. These tests need not be, and therefore are not, approved by the [place] Food and Drug Administration. The tests are used for clinical purposes. Billing Codes Specimen Charges Stain Charges 13101 78106 1 1 3 12:47 PM CDT DERMATOPATHOLOGY LABORATORY Embedded Images 3 12:47 PM CDT DERMATOPATHOLOGY LABORATORY Pathology/Cytology TISSUE SPECIMEN FROM SKIN / Unknown 07/13/2023 07/15/2023 7:17 AM CDT Miscellaneous samples (specimen) TISSUE SPECIMEN FROM SKIN / Unknown 07/13/2023 07/15/2023 7:17 AM CDT Stephen Osborn MD LAB - PATHOLOGY/CYTO LOGY ORDERABLES DERMATOPATHOLOGY LABORATORY [facility] - Department of Dermatology [address], [address] [phone] documented in this encounter Visit Diagnoses Not on filedocumented in this encounter Care Teams Load Dropper Relationship Specialty Start Date End Date Aristides Brown MD [address] [place] [address] PCP - General 10/27/11 documented as of this encounter
--- OUTSIDE RECORDS SUMMARY | 2024-12-07 17:20 | XMS_ITS | Encounter Summary ---
Author Organization [facility] Address [address] [place] [address] Care Team Providers Care Lockstitch Waistline Joiner Name Role Phone Aristides Brown MD Primary Care Provider Encounter Details Date Type Department Care Team (Late st Contact Info) Description 08/22/2020 Lab Requisition [facility] Care DermPath Lab [address] [place] [address] Stephen Osborn MD [address] [place] [address] Social History Tobacco Use Types [...] Priority Date/Time Associated Diagnosis Comments DERMATOPATHOLOGY Routine 08/21/2020 12:0 0 AM CDT documented in this encounter Results * DERMATOPATHOLOGY (08/21/2020 12:00 AM CDT) Case Report Dermatopathology Report ? Case: [id number] ? Authorizing Provider: ??Stephen Osborn MD ?Collected: ? 08/21/2020 12:00 AM ? Ordering Location: ? [facility] DermPath Lab ?Received: ?08/22/2020 11:00 AM ? Pathologist: ? Prasad Acuna MD ? Specimen: ?Skin, right medial lower breast on chest ? 0 3:34 PM T DERMATOPATHOLOGY LABORATORY Final Diagnosis Specimen A. SKIN, right medial lower breast on chest: DERMAL SCAR; PRESENT AT MARGIN RESIDUAL BASAL CELL CARCINOMA NOT IDENTIFIED (L90.5) (see microscopic description) 0 3:34 PM T DERMATOPATHOLOGY LABORATORY Clinical History Biopsy proven, [id number] [id number], BCC superficial multi 0 3:34 PM T DERMATOPATHOLOGY LABORATORY Gross Description Specimen A: Received is one formalin filled container labeled with the patient's name and designated right medial lower breast on chest. The specimen consists of a curettage and desiccation biopsy measuring 63z14f1 mm. Jar 0. 0 3:34 PM CDT DERMATOPATHOLOGY LABORATORY Microscopic Description Specimen A. SKIN, right medial lower breast on chest: There are fibroblasts and collagen bundles oriented parallel to the skin surface. There are elongated blood vessels, some of which are oriented perpendicular to the skin surface. No basal cell carcinoma is identified. The scar is present at the base of the specimen. 0 3:34 PM CDT DERMATOPATHOLOGY LABORATORY Disclaimer An external and internal positive and negative controls are appropriate for the histochemical, immunohistochemical and immunofluorescence stain(s) in this case (if any), except where stated explicitly. The performance characteristics of the stain(s) cited in this report were developed and its performance characteristic determined by the Dermatopathology Laboratory at [facility], directed by Dr. Cassandra Acuna. These tests need not be, and therefore are not, approved by the [place] Food and Drug Administration. The tests are used for clinical purposes. Billing Codes Specimen Charges Stain Charges 27830 1 0 3:34 PM CDT DERMATOPATHOLOGY LABORATORY Embedded Images 0 3:34 PM CDT DERMATOPATHOLOGY LABORATORY Pathology/Cytolog y TISSUE SPECIMEN FROM SKIN / Unknown 08/21/2020 08/22/2020 11:00 AM CDT Stephen Osborn MD LAB - PATHOLOGY/CYTO LOGY ORDERABLES DERMATOPATHOLOGY LABORATORY [facility] - Department of Dermatology [facility] Medicine [address] [place] [address], [address] [phone] documented in this encounter Visit Diagnoses Not on filedocumented in this encounter Care Teams Lockstitch Waistline Joiner Relationship Specialty Start Date End Date Aristides Brown MD [address] [place] [address] PCP - General 10/27/11 documented as of this encounter
--- OUTSIDE RECORDS SUMMARY | 2024-12-07 17:20 | XMS_ITS | CONTINUITY OF CARE DOCUMENT ---
Author Name rafael hall Address Unknown Organization [facility] Address [address] [place] [address] Phone [phone] Care Team Providers Care Purse Seiner Name Role Phone rafael hall Unavailable Unavailable
== END 2024-12-05 10:21 | disposition home or self-care (01) ==
PROVIDERS: PCP Emergency Medicine; Visit Provider Urology
DX: R97.20 Elevated prostate specific antigen [PSA] (principal); Z12.5 Encounter for screening for malignant neoplasm of prostate
CPT/HCPCS: 36415; 84153; G0103

== ENCOUNTER 2025-08-28 06:50 | Outpatient (CLI) | payer MEDICARE, SELFPAY ==
--- OUTSIDE RECORDS SUMMARY | 2025-08-28 06:54 | XMS_ITS | Encounter Summary ---
Author Organization [facility] Address [address] [place] [address] Care Team Providers Care Lamp Shades Supervisor Name Role Phone Aristides Brown MD Primary Care Provider [phone] Encounter Details Date Type Department Care Team (Late st Contact Info) Description 01/19/2019 Lab Requisition [facility] Care DermPath Lab [address] [place] [address] Stephen [place] [address] Social History Tobacco Use Types Packs/Day Years Used Date Smoking Tobacco: Never Assessed Sex and Gender Information Value Date Recorded Sex Assigned at Not on file Legal Sex Male 5:39 PM COOLER CONVEYOR LOADER Gender Identity Not on file Sexual Orientation Not on file documented as of this encounter Plan of Treatment Not on file documented as of this encounter Procedures Procedure Name Priority Date/Time Associated Diagnosis Comments DERMATOPATHOLOGY Routine 01/18/2019 12:0 0 AM COOLER CONVEYOR LOADER documented in this encounter Results * DERMATOPATHOLOGY (01/18/2019 12:00 AM COOLER CONVEYOR LOADER) Case Report Dermatopathology Report Case: [id number] Authorizing Provider: Stephen Osborn MD Collected: 01/18/2019 12:00 AM Pathologist: Caridad Shipley MD Received: 01/19/2019 01:01 PM Specimens: A) - Skin, supra pubic skin B) - Skin, right upper back 9 1:05 PM COOLER CONVEYOR LOADER DERMATOPATHOLOGY LABORATORY Final Diagnosis Specimen A. SKIN, supra pubic skin: DERMAL SCAR (L90.5) Specimen B. 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 B: R/O SCC, BCC. 1:05 PM [facility] DERMATOPATHOLOGY LABORATORY Gross Description Specimen A: Received is one formalin filled container labeled with the patient's name and designated supra pubic skin. The specimen consists of a shave biopsy measuring 6s8o4jf. Jar 0. Specimen B: Received is one formalin filled container labeled with the patient's name and designated right upper back. The specimen consists of a shave biopsy measuring 11a98l0az. Jar 0. 1:05 PM [facility] DERMATOPATHOLOGY LABORATORY Microscopic Description Specimen A. [...] agrees with the diagnosis. See synoptic report. 1:05 PM [facility] DERMATOPATHOLOGY LABORATORY Disclaimer An external and internal positive and negative controls are appropriate for the histochemical, immunohistochemical and immunofluorescence stain(s) in this case (if any), except where stated explicitly. The performance characteristics of the stain(s) cited in this report were developed and its performance characteristic determined by the Dermatopathology Laboratory at [facility], directed by Dr. Cassandra Acuna. These tests need not be, and therefore are not, approved by the [place] Food and Drug Administration. The tests are used for clinical purposes. Billing Codes Specimen Charges Stain Charges 37295 60761 1 1 9 1:05 PM COOLER CONVEYOR LOADER DERMATOPATHOLOGY LABORATORY Embedded Images 1:05 PM COOLER CONVEYOR LOADER DERMATOPATHOLOGY LABORATORY Synoptic Report MELANOMA OF THE SKIN: Biopsy (Melanoma Bx - B) SPECIMEN Procedure: Biopsy, shave Specimen Laterality: Right TUMOR Tumor Site: Skin of trunk: right upper back : Histologic Type: Superficial spreading melanoma Maximum Tumor (Breslow) Thickness in Millimeters: 0.7 Millimeters (mm) Tumor Extent: Macroscopic Satellite Nodule(s): Not identified Ulceration: Not identified Anatomic (Willis) Level: III (melanoma fills and expands papillary dermis) Accessory Findings: Mitotic Rate: None identified Microsatellite(s): Not identified Lymphovascular Invasion: Not identified Neurotropism: Not identified Tumor-Infiltrating Lymphocytes: Present, brisk Tumor Regression: Present MARGINS: Peripheral Margins: Uninvolved by invasive melanoma Status of Melanoma In Situ Involvement at Peripheral Margins: Uninvolved by melanoma in situ Deep Margin: Uninvolved by invasive melanoma PATHOLOGIC STAGE CLASSIFICATION (pTNM, AJCC 8th Edition): Primary Tumor (pT): pT1a Comment(s) Comment(s): Dr. Cassandra Acuna has also reviewed this case and agrees with the diagnosis. 9 1:05 PM COOLER CONVEYOR LOADER DERMATOPATHOLOGY LABORATORY Pathology/Cytology TISSUE SPECIMEN FROM SKIN / Unknown 01/18/2019 01/19/2019 1:01 PM COOLER CONVEYOR LOADER Miscellaneous samples (specimen) TISSUE SPECIMEN FROM SKIN / Unknown 01/18/2019 01/19/2019 1:01 PM COOLER CONVEYOR LOADER Stephen Osborn MD LAB - PATHOLOGY/CYTOLOGY ORD ERABLES Final Result DERMATOPATHOLOGY LABORATORY [facility] - Department of Dermatology [address] [place] [address], [address]th [place] [address], [facility] [phone] documented in this encounter Visit Diagnoses Not on filedocumented in this encounter Care Teams Lamp Shades Supervisor Relationship Specialty Start Date End Date Aristides Brown MD [address] [place] [address] PCP - General 10/27/11 documented as of this encounter
--- OUTSIDE RECORDS SUMMARY | 2025-08-28 06:54 | XMS_ITS | Clinical Summary ---
Author Organization [facility] Address [address] [place] [address] Care Team Providers Care Technical Professional Name Role Phone Aristides Brown MD Primary Care Provider [phone] Source Comments [facility],non-owned Affiliates and Associated Physician Practices is amultiple site organization consisting of ambulatory clinics and hospital sitesin [place], [place], [place] and [place]. This disclosure is being madepursuant to the Care Everywhere program and may not contain all information available regarding this patient. Last updated 18.[facility] Allergies No known active allergies Medications * Be aware that medications may not be up to date on this document. Alwaysverify current medications with the patient. 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 Gender Identity Not on file Sexual Orientation [...] 1:36 PM CDT Height 170.2 cm (5' 7) 02/01/2019 1:36 PM CDT Body Mass Index 29.76 02/01/2019 1:36 PM CDT Plan of Treatment Health Maintenance Due Date Last Done Comments MEDICARE AWV 12 MONTHS 1937 DTAP/TDAP/TD VACCINES (1 - Tdap) 1956 PNEUMOCOCCAL VACCINE 50+ (1 of 1 - PCV) 1987 ZOSTER VACCINE (1 of 2) 1987 Respiratory Syncytial Virus (RSV) Vaccine Pt: or over 60 yrs (1 - 1-dose 75+ series) 2012 DEPRESSION SCREENING 11/15/2024 COVID-19 VACCINE ( - 2023-2 5 season) 2025 INFLUENZA VACCINE (#1) 2025 HEPATITIS B VACCINE Aged Out No longe r eligible based on patient's age to complete this topic HIB VACCINE Aged Out No longer eligi ble based on patient's age to complete this topic HPV VACCINE Aged Out No longer eligi ble based on patient's age to complete this topic MENINGOCOCCAL (Group B) VACC INE SHARED DECISION-MAKING Aged Out No longer eligibl e based on patient's age to complete this topic MENINGOCOCCAL GROUPS A/C/Y/W VACCINE Aged Out No longer eligible b ased on patient's age to complete this [place] [address] [facility] MEDICARE [facility] Care Teams Technical Professional Relationship Specialty Start Date End Date Aristides Brown MD [address] [place] [address] PCP - General 10/27/11
--- OUTSIDE RECORDS SUMMARY | 2025-08-28 06:54 | XMS_ITS | Encounter Summary ---
Author Organization [facility] Address [address] [address] Care Team Providers Care Grinder Set Up Operator Jig Name Role Phone Aristides Brown MD Primary Care Provider [phone] Encounter Details Date Type Department Care Team (Late st Contact Info) Description 08/22/2020 Lab Requisition [facility] DermPath Lab [address] [place] [address] Stephen Osborn MD [address] [place] [address] Social History Tobacco Use Types Packs/Day Years Used Date Smoking Tobacco: Former Smokeless Tobacco: Never Alcohol Use Standard Drinks/Week Comments Yes 0 (1 standard drink = 0.6 oz pur e alcohol) Sex and Gender Information Value Date Recorded Sex Assigned at Not on file Legal Sex Male 5:39 PM MC KAY STITCHER Gender Identity Not on file Sexual Orientation Not on file documented as of this encounter Plan of Treatment Not on file documented as of this encounter Procedures Procedure Name Priority Date/Time Associated Diagnosis Comments DERMATOPATHOLOGY Routine 08/21/2020 12:0 0 AM CDT documented in this encounter Results * DERMATOPATHOLOGY (08/21/2020 12:00 AM CDT) Case Report Dermatopathology Report Case: [id number] Authorizing Provider: Stephen Osborn MD Collected: 08/21/2020 12:00 AM Ordering Location: [facility] DermPath Lab Received: 08/22/2020 11:00 AM Pathologist: Prasad Acuna MD Specimen: Skin, right medial lower breast on chest 0 3:34 PM CDT DERMATOPATHOLOGY LABORATORY Final Diagnosis Specimen A. SKIN, right medial lower breast on chest: DERMAL SCAR; PRESENT AT MARGIN RESIDUAL BASAL CELL CARCINOMA NOT IDENTIFIED (L90.5) (see microscopic description) 0 3:34 PM CDT DERMATOPATHOLOGY LABORATORY at 1534 CDT Clinical History Biopsy proven, [id number] [id number], BCC superficial multi 0 3:34 PM CDT DERMATOPATHOLOGY LABORATORY Gross Description Specimen A: Received is one formalin filled container labeled with the patient's name and designated right medial lower breast on chest. The specimen consists of a curettage and desiccation biopsy measuring 71x54e3 mm. Jar 0. 0 3:34 PM CDT [...] determined by the Dermatopathology Laboratory at [facility], directed by Dr. Cassandra Acuna. These tests need not be, and therefore are not, approved by the [place] Food and Drug Administration. The tests are used for clinical purposes. Billing Codes Specimen Charges Stain Charges 86925 1 0 3:34 PM CDT DERMATOPATHOLOGY LABORATORY Embedded Images 0 3:34 PM CDT DERMATOPATHOLOGY LABORATORY Pathology/Cytolog y TISSUE SPECIMEN FROM SKIN / Unknown 08/21/2020 08/22/2020 11:00 AM CDT Stephen Osborn MD LAB - PATHOLOGY/CYTOLOGY ORD ERABLES Final Result DERMATOPATHOLOGY LABORATORY [facility] - Department of Dermatology [facility] Specialized Medicine [address] [place] [address], [address] [phone] documented in this encounter Visit Diagnoses Not on filedocumented in this encounter Care Teams Grinder Set Up Operator Jig Relationship Specialty Start Date End Date Aristides Brown MD [address] [place] [address] PCP - General 10/27/11 documented as of this encounter
--- OUTSIDE RECORDS SUMMARY | 2025-08-28 06:54 | XMS_ITS | Encounter Summary ---
Author Organization [facility] Address [address] [place] [address] Care Team Providers Care Employee Communications Intern Name Role Phone Aristides Brown MD Primary Care Provider [phone] Encounter Details Date Type Department Care Team (Late st Contact Info) Description 08/25/2023 Lab Requisition [facility] - DermPath Lab [address] [place] [phone] Stephen Osborn MD [address] [place] [address] Social History Tobacco Use Types Packs/Day Years Used Date Smoking Tobacco: Former Smokeless Tobacco: Never Alcohol Use Standard Drinks/Week Comments Yes 0 (1 standard drink = 0.6 oz pur e alcohol) Sex and Gender Information Value Date Recorded Sex Assigned at Not on file Legal Sex Male 5:39 PM FOREST AIDE Gender Identity Not on file Sexual Orientation Not on file documented as of this encounter Plan of Treatment Not on file documented as of this encounter Procedures Procedure Name Priority Date/Time Associated Diagnosis Comments DERMATOPATHOLOGY Routine 08/24/2023 12:0 0 AM CDT documented in this encounter Results * DERMATOPATHOLOGY (08/24/2023 12:00 AM CDT) Case Report Dermatopathology Report Case: [id number] Authorizing Provider: Stephen Osborn MD Collected: 08/24/2023 12:00 AM Ordering Location: [facility] DermPath Lab Received: 08/25/2023 04:17 PM Pathologist: Ling Edwards MD Specimen: Skin, right neck behind ear 3 4:16 PM T DERMATOPATHOLOGY LABORATORY Final Diagnosis Specimen A. SKIN, right neck behind ear: HYPERPLASTIC (HYPERTROPHIC) ACTINIC KERATOSIS; EXTENDING TO THE BASE OF THE SPECIMEN (L57.0) INTRADERMAL MELANOCYTIC NEVUS (D22.4) DERMAL SCAR (L90.5) (see microscopic description and comment) 3 4:16 PM T DERMATOPATHOLOGY LABORATORY at 1616 CDT Clinical History Bx Proven, Kimbrough's Disease 3 4:16 PM T DERMATOPATHOLOGY LABORATORY Gross Description Specimen A: Received is one formalin filled container labeled with the patient's name and designated right neck behind ear. The specimen consists of a curettage and desiccation biopsy measuring 41k00i5 mm. Jar 0. 3 4:16 PM T DERMATOPATHOLOGY LABORATORY Microscopic Description Specimen A. SKIN, [...] cannot be ruled out 3 4:[address] [facility] DERMATOPATHOLOGY LABORATORY Disclaimer An external and [...] purposes. Billing Codes Specimen Charges Stain Charges 34603 1 3 4:16 PM CDT DERMATOPATHOLOGY LABORATORY Embedded Images 3 4:16 PM T DERMATOPATHOLOGY LABORATORY Pathology/Cytolog y TISSUE SPECIMEN FROM SKIN / Unknown 08/24/2023 08/25/2023 4:17 PM CDT Stephen Osborn MD LAB - PATHOLOGY/CYTOLOGY ORD ERABLES Final Result DERMATOPATHOLOGY LABORATORY [facility] - Department of Dermatology [facility] Medicine [address] [place] [address], [address] [phone] documented in this encounter Visit Diagnoses Not on filedocumented in this encounter Care Teams Employee Communications Intern Relationship Specialty Start Date End Date Aristides Brown MD [address] [place] [address] PCP - General 10/27/11 documented as of this encounter
--- OUTSIDE RECORDS SUMMARY | 2025-08-28 06:54 | XMS_ITS | Encounter Summary ---
Author Organization [facility] Address [address] [place] [address] Care Team Providers Care Rubber Goods Supervisor Name Role Phone Aristides Brown MD Primary Care Provider [phone] Encounter Details Date Type Department Care Team (Late st Contact Info) Description 07/17/2020 Lab Requisition [facility] [address] [place] [address] Stephen Osborn MD [address] [place] [address] Social History Tobacco Use Types Packs/Day Years Used Date Smoking Tobacco: Former Smokeless Tobacco: Never Alcohol Use Standard Drinks/Week Comments Yes 0 (1 standard drink = 0.6 oz pur e alcohol) Sex and Gender Information Value Date Recorded Sex Assigned at Not on file Legal 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 Gender Identity Not on file Sexual Orientation Not on file documented as of this encounter Plan of Treatment Not on file documented as of this encounter Procedures Procedure Name Priority Date/Time Associated Diagnosis Comments DERMATOPATHOLOGY Routine 07/16/2020 12:0 0 AM CDT documented in this encounter Results * DERMATOPATHOLOGY (07/16/2020 12:00 AM CDT) Case Report Dermatopathology Report Case: [id number] Authorizing Provider: Stephen Osborn MD Collected: 07/16/2020 12:00 AM Ordering Location: [facility] Received: 07/17/2020 02:36 PM Pathologist: Ling Edwards MD Specimen: Skin, right medial lower breast @ epigastrium 0 12:42 PM CDT DERMATOPATHOLOGY LABORATORY Final Diagnosis Specimen A. SKIN, right medial lower breast @ epigastrium: BASAL CELL CARCINOMA, SUPERFICIAL MULTIFOCAL (C44.519) 0 12:42 PM CDT DERMATOPATHOLOGY LABORATORY at 1242 CDT Clinical History R/O BCC, HAK, Kimbrough's, SCC. 0 12:42 PM CDT DERMATOPATHOLOGY LABORATORY Gross Description Specimen A: Received is one formalin filled container labeled with the patient's name and designated right medial lower breast @ epigastrium. The specimen consists of a shave biopsy measuring [id number]. Jar 0. 0 12:42 PM CDT DERMATOPATHOLOGY [...] characteristic determined by the Dermatopathology Laboratory at [facility], directed by Dr. Cassandra Acuna. These tests need not be, and therefore are not, approved by the [place] Food and Drug Administration. The tests are used for clinical purposes. Billing Codes Specimen Charges Stain Charges 65574 1 0 12:42 PM CDT DERMATOPATHOLOGY LABORATORY Embedded Images 0 12:42 PM CDT DERMATOPATHOLOGY LABORATORY Pathology/Cytolog y TISSUE SPECIMEN FROM SKIN / Unknown 07/16/2020 07/17/2020 2:36 PM CDT us Stephen Osborn MD LAB - PATHOLOGY/CYTOLOGY ORD ERABLES Final Result DERMATOPATHOLOGY LABORATORY [facility] - Department of Dermatology [address], [address] [place], [place] [id number] [place] [address] documented in this encounter Visit Diagnoses Not on filedocumented in this encounter Care Teams Rubber Goods Supervisor Relationship Specialty Start Date End Date Aristides Brown MD [address] [place] [id number] PCP - General 10/27/11 documented as of this encounter
--- OUTSIDE RECORDS SUMMARY | 2025-08-28 06:54 | XMS_ITS | Encounter Summary ---
Author Organization [facility] Address [address] [address] Care Team Providers Care Tape Coater Name Role Phone Aristides Brown MD Primary Care Provider [phone] Encounter Details Date Type Department Care Team (Late st Contact Info) Description 07/14/2023 Lab Requisition [facility] - [facility] [address] [place] [id number] Stephen Osborn MD [address] [place], [place] [id number] Social History Tobacco Use Types Packs/Day Years Used Date Smoking Tobacco: Former Smokeless Tobacco: Never Alcohol Use Standard Drinks/Week Comments Yes 0 (1 standard drink = 0.6 oz pur e alcohol) Sex and Gender Information Value Date Recorded Sex Assigned at Not on file Legal 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 Gender Identity Not on file Sexual Orientation Not on file documented as of this encounter Plan of Treatment Not on file documented as of this encounter Procedures Procedure Name Priority Date/Time Associated Diagnosis Comments DERMATOPATHOLOGY Routine 07/13/2023 12:0 0 AM CDT documented in this encounter Results * DERMATOPATHOLOGY (07/13/2023 12:00 AM CDT) Case Report Dermatopathology Report Case: [id number] Authorizing Provider: Stephen Osborn MD Collected: 07/13/2023 12:00 AM Ordering Location: [facility] Received: 07/15/2023 07:17 AM Pathologist: Ling Edwards MD Specimens: A) - Skin, right lat forehead B) - Skin, right neck behind ear 3 12:47 PM T DERMATOPATHOLOGY LABORATORY Final Diagnosis Specimen A. SKIN, right lat forehead: ACTINIC KERATOSIS, INFLAMED (L57.0) (see microscopic description) Specimen B. 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 Jar 0. 3 12:47 PM T DERMATOPATHOLOGY LABORATORY Microscopic Description Specimen [...] levels, and dyskeratotic cells. 3 12:47 PM T DERMATOPATHOLOGY LABORATORY Disclaimer An external and internal positive and negative controls are appropriate for the histochemical, immunohistochemical and immunofluorescence stain(s) in this case (if any), except where stated explicitly. The performance characteristics of the stain(s) cited in this report were developed and its performance characteristic determined by the Dermatopathology Laboratory at [facility], directed by Dr. Cassandra Acuna. These tests need not be, and therefore are not, approved by the [place] Food and Drug Administration. The tests are used for clinical purposes. Billing Codes Specimen Charges Stain Charges 25016 63576 1 1 3 12:47 PM CDT DERMATOPATHOLOGY LABORATORY Embedded Images 12:47 PM CDT DERMATOPATHOLOGY LABORATORY Pathology/Cytology TISSUE SPECIMEN FROM SKIN / Unknown 07/13/2023 07/15/2023 7:17 AM CDT Miscellaneous samples (specimen) TISSUE SPECIMEN FROM SKIN / Unknown 07/13/2023 07/15/2023 7:17 AM CDT Stephen Osborn MD LAB - PATHOLOGY/CYTOLOGY ORD ERABLES Final Result DERMATOPATHOLOGY LABORATORY [facility] - Department of Dermatology [facility] [address] [place] [address], [address] [phone] documented in this encounter Visit Diagnoses Not on filedocumented in this encounter Care Teams Tape Coater Relationship Specialty Start Date End Date Aristides Brown MD [address] [place] [id number] PCP - General 10/27/11 documented as of this encounter
[2025-08-28 08:03] LABS: Alanine Aminotransferase 14 U/L (6-50); Albumin Level 3.9 g/dL (3.5-5.1); Alkaline Phosphatase 69 U/L (38-126); Anion Gap 5 mmol/L (4-12); Aspartate Amino Transferase 38 U/L (17-59); Bilirubin,Total 0.6 mg/dL (0.2-1.3); Blood Urea Nitrogen 20 mg/dL (9-20); Calcium 8.4 mg/dL (8.4-10.2); Carbon Dioxide 25 mmol/L (22-30); Chloride 106 mmol/L (98-107); Cholesterol 139 mg/dL (0-200); Estimated Glomerular Filt Rate > 60; Glucose 104 mg/dL (65-110); HDL Direct 47 mg/dL; Potassium 4.5 mmol/L (3.4-5.0); Sodium 136 mmol/L (137-145); Total Protein 6.8 g/dL (6.3-8.2); Triglycerides 82 mg/dL (<150)
== END 2025-08-28 06:51 | disposition home or self-care (01) ==
LOC: ANHLAB 06:53
PROVIDERS: PCP Emergency Medicine; Visit Provider Emergency Medicine
DX: E78.5 Hyperlipidemia, unspecified (principal); E55.9 Vitamin D deficiency, unspecified
CPT/HCPCS: 36415; 80053; 80061; 82306